=== PATIENT | female | born 1945 | race Caucasian/White ===

== ENCOUNTER 2019-03-13 06:07 | Day surgery (SDC) | payer OTHER ==
[~2019-03-13] VITALS: Ht 160 cm; Wt 55.8 kg
[~2019-03-13 06:07] MED LIST: AMLO5TAB15 PO
[2019-03-13] MEDS ORDERED: ceFAZolin 1GM/50ML 50 ML IV ONE (06:55)
[2019-03-13] MEDS ORDERED: MEPERIDINE HCL (25 MG/ML) 1ML VIAL ONE (07:28)
[2019-03-13] MEDS ORDERED: MIDAZOLAM HCL 1MG/1ML-2 ML VIAL ONE (07:28)
[2019-03-13] MEDS ORDERED: fentaNYL CITRATE 100 MCG/2 ML VL ONE (07:28)
[2019-03-13] MEDS ORDERED: DexAMETHasone SOD PHOS 10MG/1ML VIAL INJ ONE (07:38)
[2019-03-13] MEDS ORDERED: PROPOFOL 10 MG/ML 20 ML IV ONE (07:38)
[2019-03-13] MEDS ORDERED: KETOROLAC TROMETH 30 MG/ML 1ML VIAL ONE (08:03)
[2019-03-13] MEDS ORDERED: BUPIVACAINE 0.25% INJ 50ML VIAL ONE (08:03)
[2019-03-13] MEDS ORDERED: KETOROLAC TROMETH 30 MG/ML 1ML VIAL IV ONE (08:15)
[2019-03-13] MEDS ORDERED: ePHEDrine SULFATE 50 MG/ML AMP IV PRN (08:15)
[2019-03-13] MEDS ORDERED: LABETALOL HCL 5 MG/ML 4ML SYRINGE IV PRN (08:15)
[2019-03-13] MEDS ORDERED: HYDROmorphone HCL 2 MG/ML VL IV PRN (08:15)
[2019-03-13] MEDS ORDERED: MORPHINE SULFATE 4 MG/ML SYR/VIAL IV PRN (08:15)
[2019-03-13] MEDS ORDERED: MIDAZOLAM HCL 1MG/1ML-2 ML VIAL IV PRN (08:15)
[2019-03-13] MEDS ORDERED: ONDANSETRON HCL 4 MG/2 ML VIAL IV PRN (08:15)
[2019-03-13] MEDS ORDERED: ONDANSETRON HCL 4 MG/2 ML VIAL ONE (08:40)
[2019-03-13 09:42] VITALS: BP 142/91
== END 2019-03-13 09:54 | disposition home or self-care (01) ==
LOC: SUR 06:07
PROVIDERS: ATTEND Orthopaedic Surgery
DX: S52.532A Colles' fracture of left radius, initial encounter for closed fracture (principal); S52.591P Other fractures of lower end of right radius, subsequent encounter for closed fracture with malunion; G56.02 Carpal tunnel syndrome, left upper limb; I10 Essential (primary) hypertension; Z98.890 Other specified postprocedural states; Z91.030 Bee allergy status; Z79.899 Other long term (current) drug therapy; X58.XXXD Exposure to other specified factors, subsequent encounter; X58.XXXA Exposure to other specified factors, initial encounter; Y93.89 Activity, other specified; Y92.89 Other specified places as the place of occurrence of the external cause; Y99.8 Other external cause status
CPT/HCPCS: 25609; 25652; 73100; 76000; J0690; J1100; J1885; J2175; J2250; J2405; J2704; J3010; J3490